=== PATIENT | female | born 1965 | race Caucasian/White ===

== ENCOUNTER 2017-01-29 13:24 | Inpatient (IN) | payer SELFPAY ==
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
--- NOTE | ~2017-01-29 | DS ---
Discharge Summary [facility] [address] [place]. [address] NAME: CASSIDY HAMEED : 63 STATUS : DIS IN PAT#: [id number] AGE: 51 ADM/REG DATE : 01/29/17 MR#: [id number] REPORT SERV DATE: 01/31/17 DICTATED BY: JERRI PARKER DATE: 01/31/17 REPORT STATUS : Draft TRANSCRIBED BY: MODL DATE: 01/31/17 ADMISSION DATE: 01/29/2017 DISCHARGE DATE: 01/31/2017 PRINCIPAL DIAGNOSIS: Syncope and collapse due to [place]'s disease in the setting of fever and missed hydrocortisone doses. SECONDARY DIAGNOSES: Influenza type A and chronic obstructive pulmonary disease exacerbation. HISTORY OF PRESENT ILLNESS: Please see Dr. Quick's dictation on 01/29/2017. HOSPITAL COURSE: Admitted with acute syncope, found to be hypotensive, but having missed hydrocortisone. She received IV hydrocortisone. Also, found to be wheezing and febrile. She received bronchodilators. As influenza test was positive, she was put on Tamiflu and isolation. She remained febrile, but was eating well and was doing somewhat better with better blood pressure. On 01/31/2017, she actually wished to go home. She was given albuterol, prednisone, and continued the course of the Tamiflu to go home with, but it was felt she was satisfactory to go home and follow up with Dr. Trev Johnston in a week. LAW/MARIEL Jerri Parker M.D. / [id number] CC: Karolina Mullen M.D.
[~2017-01-29 13:24] MED LIST: ADVIL PO; ATEN25 PO; ATEN50 PO; CORTEF5 PO; FISH-EPA1000 MG; FLORINEF0.1 MG PO; HCTZ25B PO; HYDROCHLOROT25 MG PO; HYDROCORT10 MG; LOTE10; LOTE20 PO; MULTIPLE VIT PO; NICODERM C21 MG/241 TOP; PERCOCET1 TA2; PROTONIX PO
[2017-01-29] MEDS ORDERED: LOTE20 PO (14:45)
[2017-01-29] MEDS ORDERED: ATEN50 PO (14:45)
[2017-01-29] MEDS ORDERED: CORTEF5 PO ×2 (14:47)
[2017-01-29] MEDS ORDERED: ADVIL PO (14:48)
[2017-01-29] MEDS ORDERED: HYDROCHLOROT25 MG PO (14:48)
[2017-01-29 15:03] LABS: BASOPHILS 0.1 %; BASOPHILS ABSOLUTE 0.01 10/3/uL (0.0-0.16); EOSINOPHILS 0 %; HEMOGLOBIN 13.4 g/dL (12.0-16.0); IMMATURE GRANULOCYTES 0.2 %; IMMATURE GRANULOCYTES ABSOLUTE 0.02 10/3/uL (0.0-0.11); LYMPHOCYTES 10.3 %; LYMPHOCYTES ABSOLUTE 0.88 10/3/uL (0.67-4.30); MEAN CORPUS HGB CONC 35.2 g/dL (32.0-36.0); MEAN CORPUSCULAR HEMOGLOB 33.9 pg (26.0-34.0); MEAN CORPUSCULAR VOLUME 96.5 fL (80-100); MEAN PLATELET VOLUME 9.4 fL (9.2-13.0); MONOCYTES ABSOLUTE 0.43 10/3/uL (0.21-1.20); NEUTROPHILS 84.4 %; NEUTROPHILS ABSOLUTE 7.22 10/3/uL (2.02-8.40); RBC DISTRIBUTION WIDTH 12.6 % (12.0-16.0); RED CELL COUNT 3.95 10/6/uL (4.0-5.6); WHITE BLOOD CELLS 8.6 10/3/uL (4.5-10.5)
[2017-01-29 15:06] LABS: HEMATOCRIT 38.1 % (36.0-48.0); MANUAL DIFF NO %; PLATELET COUNT 173 10/3/uL (150-400)
[2017-01-29 15:19] LABS: INTERNATIONAL NORMAL RATI 1.4 UNITS (-); PARTIAL THROMBO TIME 43.9 SEC (22.5-37.2)
[2017-01-29 15:21] LABS: BUN (BLOOD UREA NITROGEN) 8 MG/DL (6-23); CHEST PAIN PROFILE TAT 0 Hrs 24 Mins; CHLORIDE, SERUM 100 MMOL/L (96-112); CO2 (CARBON DIOXIDE) 21 MMOL/L (24-34); CREATININE 0.84 MG/DL (0.55-1.02); GFR AFRICAN AMERICAN 93 ML/MIN (>=60); GFR NON AFRICAN AMERICAN 80 ML/MIN (>=60); GLUCOSE, SERUM 114 MG/DL (60-99); SODIUM, SERUM 135 MMOL/L (135-148); TROPONIN I <0.02 NG/ML (<0.05)
[2017-01-29 15:22] LABS: CALCIUM, SERUM 7.8 MG/DL (8.5-10.4); POTASSIUM, SERUM 2.8 MMOL/L (3.5-5.3)
[2017-01-29 15:28] LABS: BAND NEUTROPHILS 16 %; ER DIFF TAT 0 Hrs 31 Mins; LYMPHOCYTES 8 %; LYMPHOCYTES ABSOLUTE (CALC) 0.69 10/3/uL (0.67-4.30); MONOCYTES 8 %; MONOCYTES ABSOLUTE (CALC) 0.69 10/3/uL (0.21-1.20); NEUTROPHILS ABSOLUTE (CALC) 7.22 10/3/uL (2.02-8.40); PLATELET ESTIMATE ADQ (ADEQUATE); PROTIME (NOT ORD) 16.6 SEC (12.0-14.5); RBC MORPHOLOGY NORM (NORMAL); SEGMENTED NEUTROPHIL (0) 68 %; TOTAL NUCLEATED CELLS 100
[2017-01-29 15:33] LABS: PROCALCITONIN 0.46 ng/mL (<0.5)
[2017-01-29 15:56] LABS: INFLUENZA A SCREEN NEGATIVE (NEGATIVE); INFLUENZA B SCREEN POSITIVE (NEGATIVE)
[2017-01-29 15:59] LABS: ASCORBIC ACID (UR NOT ORDER) NEG (NEG); BILIRUBIN, URINE NEGATIVE (NEG); ER URINALYSIS TAT 0 Hrs 16 Mins; KETONE, URINE NEGATIVE (NEG); LEUKOCYTE ESTERASE(NOT OR NEG (NEG); NITRITE (URINE) NEG (NEG); WBC (NOT ORDERED) (RFLEX) 1 (0-5)
[2017-01-30 05:37] LABS: BASOPHILS 0.2 %; BASOPHILS ABSOLUTE 0.02 10/3/uL (0.0-0.16); EOSINOPHILS 0 %; HEMATOCRIT 32.1 % (36.0-48.0); HEMOGLOBIN 11.1 g/dL (12.0-16.0); IMMATURE GRANULOCYTES 0.4 %; IMMATURE GRANULOCYTES ABSOLUTE 0.04 10/3/uL (0.0-0.11); LYMPHOCYTES 8.1 %; LYMPHOCYTES ABSOLUTE 0.83 10/3/uL (0.67-4.30); MEAN CORPUS HGB CONC 34.6 g/dL (32.0-36.0); MEAN CORPUSCULAR HEMOGLOB 33.5 pg (26.0-34.0); MEAN PLATELET VOLUME 9.3 fL (9.2-13.0); MONOCYTES ABSOLUTE 0.31 10/3/uL (0.21-1.20); NEUTROPHILS 88.3 %; PLATELET COUNT 134 10/3/uL (150-400); RBC DISTRIBUTION WIDTH 13.2 % (12.0-16.0); RED CELL COUNT 3.31 10/6/uL (4.0-5.6); WHITE BLOOD CELLS 10.3 10/3/uL (4.5-10.5)
[2017-01-30 05:38] LABS: MANUAL DIFF NO %
[2017-01-30 05:51] LABS: BUN (BLOOD UREA NITROGEN) 8 MG/DL (6-23); CALCIUM, SERUM 7.5 MG/DL (8.5-10.4); CHLORIDE, SERUM 113 MMOL/L (96-112); CO2 (CARBON DIOXIDE) 19 MMOL/L (24-34); CREATININE 0.54 MG/DL (0.55-1.02); GFR AFRICAN AMERICAN 126 ML/MIN (>=60); GFR NON AFRICAN AMERICAN 108 ML/MIN (>=60); GLUCOSE, SERUM 115 MG/DL (60-99)
[2017-01-30 05:52] LABS: POTASSIUM, SERUM 3.5 MMOL/L (3.5-5.3); SODIUM, SERUM 142 MMOL/L (135-148)
[2017-01-31 06:00] LABS: BASOPHILS 0.3 %; BASOPHILS ABSOLUTE 0.02 10/3/uL (0.0-0.16); EOSINOPHILS 0.1 %; EOSINOPHILS ABSOLUTE 0.01 10/3/uL (0.0-0.53); HEMATOCRIT 30.3 % (36.0-48.0); HEMOGLOBIN 10.6 g/dL (12.0-16.0); IMMATURE GRANULOCYTES 0.3 %; IMMATURE GRANULOCYTES ABSOLUTE 0.02 10/3/uL (0.0-0.11); LYMPHOCYTES 16.4 %; LYMPHOCYTES ABSOLUTE 1.24 10/3/uL (0.67-4.30); MEAN CORPUSCULAR HEMOGLOB 33.8 pg (26.0-34.0); MEAN CORPUSCULAR VOLUME 96.5 fL (80-100); MEAN PLATELET VOLUME 9.9 fL (9.2-13.0); MONOCYTES 4.6 %; MONOCYTES ABSOLUTE 0.35 10/3/uL (0.21-1.20); NEUTROPHILS 78.3 %; NEUTROPHILS ABSOLUTE 5.94 10/3/uL (2.02-8.40); PLATELET COUNT 150 10/3/uL (150-400); RED CELL COUNT 3.14 10/6/uL (4.0-5.6); WHITE BLOOD CELLS 7.6 10/3/uL (4.5-10.5)
[2017-01-31 06:04] LABS: MANUAL DIFF NO %
[2017-01-31 06:10] LABS: BUN (BLOOD UREA NITROGEN) 5 MG/DL (6-23); CALCIUM, SERUM 7.3 MG/DL (8.5-10.4); CHLORIDE, SERUM 109 MMOL/L (96-112); CREATININE 0.59 MG/DL (0.55-1.02); GFR AFRICAN AMERICAN 122 ML/MIN (>=60); GFR NON AFRICAN AMERICAN 105 ML/MIN (>=60); GLUCOSE, SERUM 95 MG/DL (60-99); SODIUM, SERUM 141 MMOL/L (135-148)
[2017-01-31 06:11] LABS: CO2 (CARBON DIOXIDE) 23 MMOL/L (24-34)
[2017-01-31] MEDS ORDERED: P20 PO (14:33)
[2017-01-31] MEDS ORDERED: TAMIFLU PO (14:34)
[2017-01-31] MEDS ORDERED: PROAIR HFA INH (14:36)
== END 2017-01-31 15:42 | disposition home or self-care (01) | DRG 644 ==
LOC: ER 13:24 → 7NO 18:38 → IMCU 19:03 → 7NO 01-30 08:29
PROVIDERS: Emergency Medicine; Internal Medicine
PROC: 0HQ0XZZ Repair Scalp Skin, External Approach (ICD-10-PCS; principal; 2017-01-29)
DX: E27.2 Addisonian crisis (principal); J44.1 Chronic obstructive pulmonary disease with (acute) exacerbation; J10.1 Influenza due to other identified influenza virus with other respiratory manifestations; E83.42 Hypomagnesemia; E87.6 Hypokalemia; T38.0X6A Underdosing of glucocorticoids and synthetic analogues, initial encounter; Z91.138 Patient's unintentional underdosing of medication regimen for other reason; S01.01XA Laceration without foreign body of scalp, initial encounter; W01.0XXA Fall on same level from slipping, tripping and stumbling without subsequent striking against object, initial encounter; Y92.481 Parking lot as the place of occurrence of the external cause; F17.210 Nicotine dependence, cigarettes, uncomplicated
CPT/HCPCS: 70450; 71010; 80048; 81001; 82962; 83605; 83735; 84132; 84145; 84484; 85025; 85610; 85730; 87040; 87804; 93005; 94640; 99285; A9270-GY; J0360; J1720; J1885; P9047